=== PATIENT | male | born 1995 | race Caucasian/White ===

== ENCOUNTER 2020-12-05 20:08 | Emergency (ER) | payer MEDICAID ==
[~2020-12-05] VITALS: Ht 175.3 cm; Wt 81.6 kg
[~2020-12-05 20:08] MED LIST: IBUP800T54 PO
[2020-12-05 20:12] VITALS: BP_SYST 116
--- NOTE | 2020-12-05 20:12 | NUR ---
Patient triaged and placed in waiting room. VSS and patient appears in no acute distress at this time. Accompanied by SELF, awaiting available bed, and MD notified of need for MSE.
--- NOTE | 2020-12-05 20:30 | NUR ---
Patient to [facility] for evaluation.
--- NOTE | 2020-12-05 20:35 | NUR ---
PATIENT BROUGHT IN COMPLAINING OF BUG IN RIGHT NOSTRIL X 4 DAYS. REPORTS FEELING SOMETHING CRAWLING IN THERE. DENIES ANY DRUGS OR ALCOHOL.
--- NOTE | 2020-12-05 20:44 | NUR ---
ER Dr. COLBERT at bedside examining patient.
[2020-12-05 20:49] VITALS: BP_SYST 116
--- NOTE | 2020-12-05 20:49 | NUR ---
Patient given written and verbal discharge instructions and verbalizes understanding. ER MD discussed with patient the results and treatment provided. Patient in stable condition. ID arm band removed.= NO RX given. Patient educated on pain management and to follow up with PMD. Pain Scale 0/10 Opportunity for questions provided and answered.
== END 2020-12-05 20:49 | disposition home or self-care (01) ==
LOC: SED 20:08
DX: F22 Delusional disorders (principal); Z79.899 Other long term (current) drug therapy
CPT/HCPCS: 99281